=== PATIENT | female | born 1995 | race African-American/Black ===

== ENCOUNTER 2021-10-19 12:00 | Emergency (ER) | payer OTHER, MEDICAID, SELFPAY ==
--- NOTE | ~2021-10-19 | CT_ITS ---
EXAMINATION: CT abdomen pelvis w con DATE: 10/19/2021 13:49 INDICATION: Abdominal pain. Diarrhea. TECHNIQUE: Computed tomography (CT) of the abdomen and pelvis was performed with 100 mL Omnipaque 300 intravenous contrast. Automated exposure control and iterative reconstruction technique were employe d. The dose-length product was 1030.34 mGy-cm. COMPARISON: CT abdomen and pelvis 01/30/2019 FINDINGS: The visualized portions of the lung bases are clear without pneumonia or pleural effusion. The heart size is normal. No pericardial effusion. There is a 4 mm cyst in the liver. The gallbladder , spleen, pancreas, and adrenal glands are normal. There are cysts in the kidneys measuring up to 5 m m on the right. There is a 2 mm stone in left kidney. There is a tampon in the vagina. There are no d ilated loops of bowel. The appendix is normal. There are no pathologically enlarged lymph nodes. Ther e is physiologic fluid in the pelvis. There is mild lumbar spondylosis. IMPRESSION: 1. No etiology for the patient's symptoms. Reviewed, dictated and finalized at location A.
--- NOTE | ~2021-10-19 | US_ITS ---
EXAMINATION: US pelvic complete w TV DATE: 10/19/2021 15:31 INDICATION: lower abd pain TECHNIQUE: Multiple transabdominal and endovaginal sonographic images of the pelvis were obtained. COMPARISON: CT abdomen pelvis, same date FINDINGS: Uterus: 6.9 x 3.6 x 6.1 cm. Endometrial complex measures 0.6 cm. Right Ovary: 4.8 x 2.3 x 2.2 cm. Vascular flow is present. Multiple follicles. Left Ovary: Surgically absent ovary. No adnexal abnormality. There is no free fluid in the pelvis. IMPRESSION: Status post left oophorectomy. Otherwise normal pelvic sonogram findings. Reviewed, dictated and finalized at location K.
[2021-10-19 12:16] VITALS: BP 153/103; PULSE 76; RESP 20; TEMP 36.7; O2SAT 100
[2021-10-19 13:06] LABS: Basophils Percent Auto 0.3 % (0.2-1.2); Hematocrit 33.7 % (37.0-47.0); Hemoglobin 11.3 g/dL (12.0-15.0); Lymphocytes Absolute Auto 1.41 K/mm3 (0.9-3.2); Lymphocytes Percent Auto 47.3 % (18.3-44.2); Mean Corpuscular HGB Conc 33.5 g/dl (32-36); Mean Corpuscular Hemoglobin 30.8 pg (26-34); Mean Corpuscular Volume 91.8 fl (80-100); Mean Platelet Volume 10.4 fl (7.4-10.4); Monocytes Absolute Auto 0.2 K/mm3 (0.1-0.6); Monocytes Percent Auto 5.4 % (2.6-8.5); Neutrophils Absolute Auto 1.4 K/mm3 (1.3-6.7); Platelet Count Result 191 k/mm3 (150-375); Red Blood Count 3.67 M/mm3 (4.2-5.4); Red Cell Distribution Width 12.7 % (11.5-14.5)
[2021-10-19 13:08] LABS: Appearance Urine Clear (Clear); Bilirubin Urine Negative (Negative); Blood Urine 3+ (Negative); Color Urine Yellow (Yellow); Glucose Urine UA Negative (Negative); Ketones Urine Negative (Negative); Leukocyte Esterase Ur Negative LEU/UL (Negative); Nitrate Urine Negative (Negative); Protein Urine Negative (Negative); Specific Grav Ur 1.015 (1.001-1.035); Urobilinogen Urine 0.2 mg/dL (<2.0)
--- NOTE | 2021-10-19 13:18 | ED.ABDPAIN ---
HPI - Abdominal Pain General Chief Complaint: Abdominal Pain Stated Complaint: Abdominal pain Time Seen by Provider: 10/19/21 12:13 Source: RN notes reviewed History of Present Illness HPI narrative: Patient presents emergency room from home for abdominal pain. Patient states symptoms began 2 days ago. States the pain is diffuse throughout the abdomen described as sharp and stabbing. States she had diarrhea 2 days ago has had no bowel movement since then. She denies any fevers or chills chest pain shortness of breath or any other symptoms denies any nausea or vomiting. States she not taking pain medication today Related Data Allergies Allergy/AdvReac Type Severity Reaction Status Date / Time No Known Allergies Allergy Verified 10/19/21 12:47 Review of Systems Review of Systems: Gen.: Denies fevers or chills ENT: Denies congestion Respiratory: Denies shortness of breath or cough CV: Denies chest pain or palpitations GI: See HPI denies burning, urgency, frequency or hematuria Musculoskeletal: Denies back pain or muscle pain Neuro: Denies numbness, tingling, weakness or focal weakness Skin: Denies rash Except as documented, all other systems reviewed and negative [facility] Past Medical History Medical History (Updated 10/19/21 @ 17:17 by Juan Mendoza DO) Lupus Social History Social History (Updated 10/19/21 @ 13:19 by Juan Mendoza DO) Smoking status: Never smoker Exam Narrative: APPEARANCE: No acute distress, nontoxic, resting in bed HEENT: Normocephalic, atraumatic, OMM RESPIRATORY: No respiratory distress, clear to auscultation bilaterally with no rhonchi wheezing or rales CARDIOVASCULAR: RRR s murmur ABDOMINAL: Soft nondistended diffusely tender palpation no rebound or guarding MUSCULOSKELETAl: Moves all extremities. No clubbing, cyanosis or edema. NEURO: Awake and alert. Following commands, speech normal, no focal deficits SKIN:: Warm, dry. Normal Color PSYCHIATRIC: Normal affect/mood Course Course Emergency Course: Long discussion with patient she has had ongoing history of abdominal pain she has been seen by [employer] before in the past and it was thought she had possible endometriosis patient states she is not on any hormone therapy as she has a history of blood clots before in the past patient states pain does get worse around her menstrual cycle and she is currently on her menstrual cycle. States she has been prescribed Toradol for the pain at home which she has been taking Patient states that they are feeling better and are ready for discharge. Repeat abdominal exam shows the patient's abdomen to be soft with no surgical abdomen present discussed with patient results of workup and diagnosis. Discussed need for follow-up with primary care physician, reasons to return to the emergency department in proper use of medication. Patient understands and agrees to current treatment plan Vital Signs Vital signs: Vital Signs Temperature 98.1 F 10/19/21 12:16 Pulse Rate 76 10/19/21 12:16 Respiratory Rate 20 10/19/21 12:16 Blood Pressure 153/103 H 10/19/21 12:16 Pulse Oximetry 100 10/19/21 12:16 Temperature 98.1 F 10/19/21 12:16 Pulse Rate 76 10/19/21 14:38 Respiratory Rate 14 10/19/21 14:38 Blood Pressure 162/104 H 10/19/21 14:38 Pulse Oximetry 97 10/19/21 14:38 MDM - Abdominal Pain MDM Narrative Medical decision making narrative: Patient's abdomen is soft without significant pain or signs of surgical abdomen on serial exams. Lab and x-ray evaluations are reviewed and patient is felt to be a reasonable candidate for outpatient management. Patient was instructed as to limitations of x-ray and laboratory evaluation and encouraged to return to ED or primary physician for repeat exam in 12 hours if continued or worsening pain. Patient with history of recurrent abdominal pain history of questionable endometriosis suspect endometriosis versus other and will patient
[2021-10-19 13:20] LABS: Alanine Aminotransferase 19 U/L (6-35); Albumin Level 4.4 g/dL (3.5-5.1); Alkaline Phosphatase 73 U/L (38-126); Anion Gap 2 mmol/L (8-16); Aspartate Amino Transferase 28 U/L (14-36); Bilirubin,Total 0.7 mg/dL (0.2-1.3); Blood Urea Nitrogen 7 mg/dL (7-17); Calcium 8.9 mg/dL (8.4-10.2); Carbon Dioxide 29 mmol/L (22-30); Chloride 107 mmol/L (98-107); Estimated Glomerular Filt Rate > 60; Glucose 79 mg/dL (65-110); Lipase 411 U/L (23-300); Mucus Urine Rare /lpf; Potassium 3.7 mmol/L (3.4-5.0); RBC Urine >75 /hpf (0-2); Sodium 138 mmol/L (137-145); Squamous Epithelial Cell Urine Rare /hpf (Few); WBC Urine 0-3 /hpf
[2021-10-19] MEDS: KETOROLAC 30 MG/ML VIAL (*BKC) IV PUSH (13:24)
[2021-10-19] MEDS: SODIUM CHLORIDE 0.9% IV 1,000 ML 999 ML IV CONT ×2 (13:24→15:59)
--- NOTE | 2021-10-19 13:31 | PC.NURSE ---
pt. to CT
[2021-10-19 13:32] LABS: Add Urine Microscopic? YES
[2021-10-19] MEDS: MORPHINE SULFATE (*CRX) 4 MG/ML INJ IV PUSH (14:37)
[2021-10-19 14:38] VITALS: BP 162/104; PULSE 76; RESP 14; O2SAT 97
[2021-10-19 17:30] VITALS: BP 149/96; PULSE 89; RESP 18; O2SAT 97
== END 2021-10-19 17:30 | disposition home or self-care (01) ==
PROVIDERS: Emergency Provider Emergency Medicine
DX: R10.30 Lower abdominal pain, unspecified (principal); Z90.721 Acquired absence of ovaries, unilateral
CPT/HCPCS: 36415; 74177; 76830; 76856; 80053; 81001; 81025; 83690; 85025; 96361; 96374; 96375; 99284; J1885; J2270; J7030; Q9967